=== PATIENT | female | born 1995 | race African-American/Black ===

== ENCOUNTER 2016-06-25 07:40 | Emergency (ER) | payer OTHER ==
[~2016-06-25] VITALS: Ht 160 cm; Wt 90.9 kg
[~2016-06-25 07:40] MED LIST: ALBUTEROL SULF8.5 GM IH; AMPICILLIN TRI500 MG PO; CEFDINIR300 MG PO; CLARITIN,ALAVAR10 MG PO; ENDOCET 5-3251 EACH PO; FERROUS SULFAT325 MG PO; PRENATAL COMPL1 EACH PO; RHINOCORT AQUA8.6 G1 NS
[2016-06-25 09:02] LABS: EOSINOPHIL (%) 0.6 % (0-5); EOSINOPHIL COUNT 0.1 K/uL (0-0.3); IMMATURE GRANULOCYTE (%) 0.2 % (0.0-0.7); IMMATURE GRANULOCYTE COUNT 0.2 K/uL; LYMPHOCYTE COUNT 1.8 K/uL (1.0-2.8); MCH 30.2 PG (29.0-34.0); MCHC 34.3 G/DL (30.0-36.0); MCV 88.1 FL (83-99); MONOCYTE (%) 6.1 % (3-12); MONOCYTE COUNT 0.7 K/uL (0-0.8); NEUTROPHIL (%) 78.1 % (45-76); NEUTROPHIL COUNT 9.2 K/uL (1.8-6.4); PLATELET COUNT 279 K/uL (156-360); RBC DIS.WIDTH-CV 12.7 % (11.8-14.6); RBC DIS.WIDTH-SD 39.6 % (39-53); WHITE BLOOD COUNT 11.7 K/uL (4.1-10.2)
[2016-06-25 09:14] LABS: CHLORIDE 107 mEq/L (99-109); POTASSIUM 3.6 mEq/L (3.7-5.4); SODIUM 138 mEq/L (136-147)
[2016-06-25 09:16] LABS: GLUCOSE 105 mg/dL (70-99)
[2016-06-25 09:17] LABS: ANION GAP 7 MEQ/L (2-14)
[2016-06-25 09:18] LABS: TOTAL BILIRUBIN 0.3 mg/dL (0.0-1.0)
[2016-06-25 09:19] LABS: ALKALINE PHOSPHATASE 96 IU/L (3-129)
[2016-06-25 09:20] LABS: GFR ESTIMATE (CALCULATED) > 59 mL/min/
[2016-06-25 09:21] LABS: UREA NITROGEN (BUN) 8 mg/dL (9-23)
[2016-06-25 09:23] LABS: LIPASE 8 U/L (1.0-51.0)
[2016-06-25 09:28] LABS: QUANTITATIVE HCG < 4.0 MIU/ML
[2016-06-25] MEDS ORDERED: TYLENOL WITH C1 EACH PO (09:46)
[2016-06-25] MEDS ORDERED: ZOFRAN ODT4 MG PO (09:46)
[2016-06-25 10:03] VITALS: BP 111/59
== END 2016-06-25 10:13 | disposition home or self-care (01) ==
LOC: EME → EDBD 07:40 → EME 07:40
PROVIDERS: Emergency Medicine
DX: K80.20 Calculus of gallbladder without cholecystitis without obstruction (principal)
CPT/HCPCS: 76705; 80053; 83690; 84702; 85025; 99281; 99284; J2270; J2405; J7030

== ENCOUNTER 2016-09-06 03:29 | Emergency (ER) | payer OTHER ==
[~2016-09-06] VITALS: Ht 160 cm; Wt 87.4 kg
[~2016-09-06 03:29] MED LIST changes: +TYLENOL WITH C1 EACH PO; +ZOFRAN ODT4 MG PO
[2016-09-06 04:42] VITALS: BP 124/72
== END 2016-09-06 04:43 | disposition home or self-care (01) ==
LOC: EME 03:29
DX: B37.3 Candidiasis of vulva and vagina (principal); F17.200 Nicotine dependence, unspecified, uncomplicated
CPT/HCPCS: 99281; 99283

== ENCOUNTER 2017-03-03 23:27 | Emergency (ER) | payer OTHER ==
[~2017-03-03] VITALS: Ht 160 cm; Wt 88.9 kg
[2017-03-04 01:32] VITALS: BP 134/74
== END 2017-03-04 01:33 | disposition home or self-care (01) ==
LOC: EME 23:27
DX: S05.02XA Injury of conjunctiva and corneal abrasion without foreign body, left eye, initial encounter (principal); X58.XXXA Exposure to other specified factors, initial encounter; Z72.0 Tobacco use
CPT/HCPCS: 99281; 99284